=== PATIENT | female | born 1970 | race Caucasian/White ===

== ENCOUNTER 2016-08-20 19:29 | Emergency (ER) | payer MEDICARE ==
[~2016-08-20 19:29] MED LIST: ACID CONTROL20 MG PO; ALPRAZOLAM; ATIVAN0.5 MG PO; AUGMENTIN875 MG PO; DIFLUCAN PO; FETZIMA20 MG; LORTAB 10-3251 EACH; LYRICA; PEPCID PO; PREDNISONE PO
== END 2016-08-20 21:03 | disposition home or self-care (01) ==
LOC: CED 19:29
DX: T67.9XXA Effect of heat and light, unspecified, initial encounter (principal); F17.200 Nicotine dependence, unspecified, uncomplicated; Z79.899 Other long term (current) drug therapy
CPT/HCPCS: 99282